=== PATIENT | female | born 1995 | race Caucasian/White ===

== ENCOUNTER → 2018-08-05 | Outpatient (CLI) | payer OTHER ==
[~2018-08-05] VITALS: Ht 170.2 cm; Wt 59.1 kg
[~2018-08-05] MED LIST: BUSPIRONE HYDRO10 MG PO; EFFEXOR XR150 M1 PO; LAMICTAL 100MG100 MG PO
[2018-08-05 07:47] LABS: EOS # 0.1 (0.04-0.40); EOS % 1.2 % (1.0-5.0); HEMATOCRIT 40.7 % (37.0-47.0); HEMOGLOBIN 13.9 g/dL (12.5-16.0); LYMPH# 2.3 (1.50-4.00); MEAN CELL VOLUME 89 fl (78-100); MEAN CORPUSCULAR HEMOGLOBIN 30 pg (27-31); MEAN CORPUSCULAR HGB CONC 34 g/dL (33-37); MEAN PLATELET VOLUME 9.8 fl (7.4-10.4); MONO # 0.5 (0.20-0.80); NEU # 2.2 (1.40-6.50); PLATELET COUNT 251 K/mm3 (130-400); RED BLOOD COUNT 4.59 M/mm3 (4.10-5.30); WHITE BLOOD COUNT 5.1 K/mm3 (4.8-10.8)
[2018-08-05 08:08] LABS: ALBUMIN 4.8 g/dL (3.5-5.0); CALCIUM 9.7 mg/dL (8.4-10.2); POTASSIUM 4.1 mmol/L (3.6-5.0); TOTAL BILIRUBIN 0.5 mg/dL (0.2-1.3); TOTAL PROTEIN 7.9 g/dL (6.3-8.2)
[2018-08-05 08:19] LABS: URINE APPEARANCE CLEAR; URINE BILIRUBIN NEGATIVE (NEGATIVE); URINE BLOOD NEGATIVE (NEGATIVE); URINE COLOR YELLOW; URINE GLUCOSE NEGATIVE (NEGATIVE); URINE KETONE NEGATIVE (NEGATIVE); URINE LEUKOCYTE ESTERASE NEGATIVE (NEGATIVE); URINE MUCUS PRESENT (NOT PRESENT); URINE NITRATE NEGATIVE (NEGATIVE); URINE PROTEIN(semi-quant) TRACE mg/dL (NEGATIVE); URINE UROBILINOGEN NORMAL (NORMAL)
[2018-08-05 09:02] VITALS: BP 108/75
[2018-08-05 09:31] VITALS: BP 114/79
--- NOTE | 2018-08-05 09:40 | NUR ---
PT REPORTS HAVING MINIMAL RESULTS AFTER RECEIVING FLEETS ENEMA. STATES THAT SHE HAD LOOSE LIQUID STOOL. RESULTS CALLED TO PROVIDER. PER KHOI ASHER PA-C, PT TO TAKE MIRALAX BID UNTIL RESULTS ACHEIVED. PT IS ALSO INFORMED THAT SHE MAY GET OTC FLEETS ENEMA FROM DRUG STORE TO ADMINISTER TO SELF. PT REPORTS UNDERSTANDING, AMBULATES FROM FACILITY WITHOUT DIFFICULTY.
== END ==
LOC: RAD 07:34 → AMSURD 07:34
PROVIDERS: Physician Assistant
DX: R10.9 Unspecified abdominal pain (principal)

== ENCOUNTER 2020-04-19 05:11 | Emergency (ER) | payer BC ==
[~2020-04-19] VITALS: Ht 170.2 cm; Wt 59.1 kg
[2020-04-19] MEDS ORDERED: BUSPAR 15MG TAB15 MG PO (05:26)
[2020-04-19] MEDS ORDERED: LAMICTAL150 MG PO (05:28)
[2020-04-19] MEDS ORDERED: DESYREL50 MG PO (05:28)
[2020-04-19] MEDS ORDERED: VENLAFAXINE H37.5 M4 PO (05:30)
[2020-04-19 06:11] LABS: HEMATOCRIT 39.8 % (37.0-47.0); HEMOGLOBIN 12.9 g/dL (12.5-16.0); MEAN CELL VOLUME 87 fl (78-100); MEAN CORPUSCULAR HEMOGLOBIN 28 pg (27-31); MEAN CORPUSCULAR HGB CONC 32 g/dL (33-37); MEAN PLATELET VOLUME 10.1 fl (7.4-10.4); PLATELET COUNT 244 K/mm3 (130-400); RED BLOOD COUNT 4.59 M/mm3 (4.10-5.30); RED CELL DISTRIBUTION WIDTH 13.2 % (11.5-14.5); WHITE BLOOD COUNT 9.2 K/mm3 (4.8-10.8)
[2020-04-19 06:21] LABS: ALBUMIN 4.5 g/dL (3.5-5.0)
[2020-04-19 06:22] LABS: CALCIUM 9.4 mg/dL (8.3-10.5)
[2020-04-19 06:23] LABS: TOTAL PROTEIN 7.5 g/dL (6.4-8.3)
[2020-04-19 06:25] LABS: TOTAL BILIRUBIN 0.3 mg/dL (0.2-1.2)
[2020-04-19 06:30] LABS: LYMPHOCYTE 8 % (20-51); MONOCYTE 3 % (3-10); NEUTROPHILS 89 % (42-75)
[2020-04-19] MEDS ORDERED: NORCO 325 MG-51 TA1 PO (09:50)
[2020-04-19] MEDS ORDERED: LINZESS72 MCG PO (09:50)
[2020-04-19] MEDS ORDERED: PREDNISONE10 MG PO (09:50)
[2020-04-19 09:52] VITALS: BP 119/80
== END 2020-04-19 09:58 | disposition home or self-care (01) ==
LOC: ED 05:11
PROVIDERS: Family Medicine
DX: K52.9 Noninfective gastroenteritis and colitis, unspecified (principal); F41.9 Anxiety disorder, unspecified; F32.9 Major depressive disorder, single episode, unspecified
CPT/HCPCS: J2270; J7120; Q9967